=== PATIENT | female | born 1980 | race Two or more races ===

== ENCOUNTER 2020-01-21 17:51 | Emergency (ER) | payer SELFPAY ==
[~2020-01-21] VITALS: Ht 157.5 cm; Wt 62.6 kg
[2020-01-21] MEDS ORDERED: ASPIRIN 81 MG TABLET CHEW PO ONE (18:30)
[2020-01-21] MEDS ORDERED: ASPIRIN 81 MG TABLET CHEW ONE (18:33)
[2020-01-21 18:51] LABS: ALANINE AMINOTRANSFERASE 16 U/L (12-78); ALBUMIN 4.1 g/dL (3.4-5.0); ANION GAP 5 mmol/L (5-15); CALCIUM 8.7 mg/dL (8.5-10.1); CHLORIDE 110 mmol/L (98-107); CREATININE 0.71 mg/dL (0.55-1.02)
[2020-01-21 18:56] LABS: ALKALINE PHOSPHATASE 76 U/L (45-117); BILIRUBIN,TOTAL 1.8 mg/dL (0.2-1.0); TOTAL PROTEIN 7.1 g/dL (6.4-8.2); TROPONIN I < 0.015 ng/mL (0.000-0.045)
[2020-01-21 18:59] LABS: SALICYLATE LEVEL < 1.7 mg/dL (2.8-20.0)
--- NOTE | 2020-01-21 18:59 | NUR ---
URINE SAMPLE SENT TO LAB
[2020-01-21 19:03] LABS: BASOPHILS % (AUTO) 0 % (0-1); EOSINOPHILS % (AUTO) 3 % (1-7); LYMPHOCYTES % (AUTO) 24 % (22-44); MEAN CORPUSCULAR HEMOGLOBIN 32.6 pg (27.0-34.8); MEAN CORPUSCULAR HGB CONC 35.3 g/dL (32.4-35.8); MEAN PLATELET VOLUME 12.1 fL (7.4-10.4); MONOCYTES % (AUTO) 8 % (2-9); NEUTROPHILS % (AUTO) 65 % (42-75); PLATELET COUNT 155 x10^3/uL (130-400); RED BLOOD COUNT 4.45 x10^6/uL (3.82-5.3); RED CELL DISTRIBUTION WIDTH 14.7 % (9.6-15.2)
--- NOTE | 2020-01-21 19:11 | NUR ---
report received from Chivo FAGAN. pt slightly tearful, denies any needs at this time. primarly martiniquais speaking, friend at bedside.
[2020-01-21 19:16] LABS: AMPHETAMINE SCREEN, URINE Negative (Negative); BARBITURATE SCREEN, URINE Negative (Negative); BENZODIAZEPINE SCREEN, URINE Negative (Negative); CANNABINOID SCREEN, URINE Negative (Negative); COCAINE SCREEN, URINE Negative (Negative); METHADONE SCREEN, URINE Negative (Negative); OPIATE SCREEN, URINE Negative (Negative)
[2020-01-21 19:21] LABS: MD NO
--- NOTE | 2020-01-21 20:00 | NUR ---
PT RESTING IN GURALSTEAD. FRIEND AT BEDSIDE. DENIES ANY NEEDS AT THIS TIME
[2020-01-21 21:07] VITALS: BP 93/47
--- NOTE | 2020-01-21 21:08 | NUR ---
PT DISCHARGE TO HOME. PT AMBULATORY TO DC DESK WITH FRIEND. DC PAPERWORK GIVEM IN FAROESE, ALL QUESTIONS ANSWERED.
== END 2020-01-21 21:37 | disposition home or self-care (01) ==
LOC: ED 19:56
DX: R06.00 Dyspnea, unspecified (principal); R07.89 Other chest pain; F41.1 Generalized anxiety disorder; R06.4 Hyperventilation; R63.4 Abnormal weight loss; R00.0 Tachycardia, unspecified
CPT/HCPCS: 36415; 71045; 80053; 80307; 84484; 84703; 85025; 85379; 93005; 99283; 99285